=== PATIENT | male | born 1980 | race Caucasian/White ===

== ENCOUNTER 2019-01-22 08:28 | Emergency (ER) | payer SELFPAY ==
--- NOTE | 2019-01-22 09:42 | ER ---
Nurse's Notes [facility] Name: Bandar Padilla Age: 38 yrs Sex: Male : 1980 Arrival Date: 01/22/2019 Time: 08:31 Bed 19 Private MD: Diagnosis: Other bursitis of knee, left knee Presentation: 01/22 08:43 Presenting complaint: Patient states: left knee pain since yesterday morning, denies iw injury. Transition of care: patient was not received from another setting of care. Onset of symptoms was January 22, 2019. Risk Assessment: Do you want to hurt yourself or someone else? Patient reports no desire to harm self or others. Initial Sepsis Screen: Does the patient meet any 2 criteria? No. Patient's initial sepsis screen is negative. Does the patient have a suspected source of infection? No. Patient's initial sepsis screen is negative. Care prior to arrival: None. 08:43 Method Of Arrival: Ambulatory iw 08:43 Acuity: AYDIN 4 iw Triage Assessment: 08:45 General: Appears in no apparent distress. comfortable, Behavior is cooperative, bp appropriate for age, anxious. Pain: Complains of pain in left knee. EENT: No deficits noted. Neuro: No deficits noted. Cardiovascular: No deficits noted. Respiratory: No deficits noted. GI: No signs and/or symptoms were reported involving the gastrointestinal system. : No signs and/or symptoms were reported regarding the genitourinary system. Derm: No deficits noted. Musculoskeletal: Reports pain in left knee. Historical: - Allergies: 08:44 No Known Allergies; iw - Home Meds: 08:44 None [Active]; iw - PMHx: 08:44 None; iw - PSHx: 08:45 right knee; iw - Immunization history:: Adult Immunizations not up to date. - Social history:: Smoking status: Patient uses tobacco products, smokes one pack cigarettes per day. - Ebola Screening: : Patient negative for fever greater than or equal to 101.5 degrees Fahrenheit, and additional compatible Ebola Virus Disease symptoms Patient denies exposure to infectious person Patient denies travel to an Ebola-affected area in the 21 days before illness onset No symptoms or risks identified at this time. Screenin:45 Fall Risk None identified. bp 09:01 Abuse screen: Denies threats or abuse. Denies injuries from another. Nutritional bp screening: No deficits noted. Tuberculosis screening: No symptoms or risk factors identified. Assessment: 08:45 General: SEE TRIAGE NOTE. bp 10:00 Reassessment: PT D/C HOME AMBULATORY WITH FAMILY, DX WITH BURSITIS. bp Vital Signs: 08:45 BP 141 / 76; Pulse 73; Resp 16; Temp 97.7; Pulse Ox 98% on R/A; Weight 79.83 kg; Height iw 5 ft. 8 in. (172.72 cm); Pain 0/10; 09:45 BP 137 / 69; Pulse 75; Resp 16; Temp 98; Pulse Ox 98% ; bp 08:45 Body Mass Index 26.76 (79.83 kg, 172.72 cm) ED Course: 08:31 Patient arrived in ED. mr 08:31 Michelle Helton FNP-C is PHCP. kb 08:32 Casper Lee MD is Attending Physician. kb 08:44 Triage completed. iw 08:46 Arm band placed on. iw 08:59 Didier Muhammad, RN is Primary Nurse. bp 09:01 Patient has correct armband on for positive identification. Placed in gown. Bed in low bp position. Call light in reach. Side rails up X2. Adult w/ patient. 09:12 Knee Left 3 View XRAY In Process Unspecified. EDMS 09:45 Bang wrap to left knee. bp 10:00 No provider procedures requiring assistance completed. Patient did not have IV access bp during this emergency room visit. Administered Medications: 09:45 Drug: TORadol 30 mg Route: IM; Site: right deltoid; bp 10:00 Follow up: Response: Pain is decreased bp Outcome: 09:41 Discharge ordered by MD. kb 10:01 Discharged to home ambulatory, with family. bp 10:01 Condition: stable 10:01 Discharge instructions given to patient, Instructed on discharge instructions, follow up and referral plans. medication usage, Demonstrated understanding of instructions, follow-up care, medications, Prescriptions given X 1. 10:03 Patient left the ED. bp Signatures: Dispatcher [employer] EDMS Michelle Helton FNP-C FNP-Ckb LeroyYeni Junie Braga RN RN iw Didier Muhammad, RN RN bp Corrections: (The following items were deleted from the chart) 08:45 08:43 Presenting complaint: Patient states: left knee pain since yesterday morning, iw denies injury iw 08: Presenting complaint: Patient states: right knee pain since yesterday morning, iw denies injury iw 08:44 PSHx: left knee; iw iw
--- NOTE | 2019-01-22 09:42 | EDPHYS ---
Physician Documentation [facility] Name: Bandar Padilla Age: 38 yrs Sex: Male : 1980 Arrival Date: 01/22/2019 Time: 08:31 Bed 19 Private MD: ED Physician Casper eLe HPI: 01/22 08:50 This 38 yrs old Male presents to ER via Ambulatory with complaints of Knee kb Pain. 08:50 The patient presents with pain, that is acute. The complaints affect the left knee. kb Context: The problem was sustained at work, resulted from no cause, was sitting in truck when pain started, the patient can fully bear weight, the patient is not able to ambulate. Onset: The symptoms/episode began/occurred yesterday. Modifying factors: The symptoms are alleviated by nothing. the symptoms are aggravated by straightening leg. Associated signs and symptoms: Pertinent positives: swelling. Treatment prior to arrival includes: no previous treatment. Severity of symptoms: At their worst the symptoms were moderate, in the emergency department the symptoms are unchanged. The patient has experienced a previous episode. The patient has not recently seen a physician. Pt reports he was sitting in his truck and started having stabbing pain to front of left knee. States he had the same thing happen to the right knee in the past and had to have his bursa removed. . Historical: - Allergies: 08:44 No Known Allergies; iw - Home Meds: 08:44 None [Active]; iw - PMHx: 08:44 None; iw - PSHx: 08:45 right knee; iw - Immunization history:: Adult Immunizations not up to date. - Social history:: Smoking status: Patient uses tobacco products, smokes one pack cigarettes per day. - Ebola Screening: : Patient negative for fever greater than or equal to 101.5 degrees Fahrenheit, and additional compatible Ebola Virus Disease symptoms Patient denies exposure to infectious person Patient denies travel to an Ebola-affected area in the 21 days before illness onset No symptoms or risks identified at this time. ROS: 08:49 Constitutional: Negative for fever, chills, and weight loss, Cardiovascular: Negative kb for chest pain, palpitations, and edema, Respiratory: Negative for shortness of breath, cough, wheezing, and pleuritic chest pain, Abdomen/GI: Negative for abdominal pain, nausea, vomiting, diarrhea, and constipation, Back: Negative for injury and pain, Skin: Negative for injury, rash, and discoloration, Neuro: Negative for headache, weakness, numbness, tingling, and seizure. 08:49 MS/extremity: Positive for pain, of the left knee. Exam: 08:49 Constitutional: This is a well developed, well nourished patient who is awake, alert, kb and in no acute distress. Head/Face: Normocephalic, atraumatic. Chest/axilla: Normal chest wall appearance and motion. Nontender with no deformity. No lesions are appreciated. Cardiovascular: Regular rate and rhythm with a normal S1 and S2. No gallops, murmurs, or rubs. Normal PMI, no JVD. No pulse deficits. Respiratory: Lungs have equal breath sounds bilaterally, clear to auscultation and percussion. No rales, rhonchi or wheezes noted. No increased work of breathing, no retractions or nasal flaring. Abdomen/GI: Soft, non-tender, with normal bowel sounds. No distension or tympany. No guarding or rebound. No evidence of tenderness throughout. Back: No spinal tenderness. No costovertebral tenderness. Full range of motion. Neuro: Awake and alert, GCS 15, oriented to person, place, time, and situation. Cranial nerves II-XII grossly intact. Motor strength 5/5 in all extremities. Sensory grossly intact. Cerebellar exam normal. Normal gait. 08:49 Musculoskeletal/extremity: Extremities: grossly normal except: noted in the left knee: erythema, pain, swelling, erythema and swelling is slight and just distal to patella , ROM: intact in all extremities, more pain when straightening leg, Circulation is intact in all extremities. Sensation intact. Weight bearing: able to fully bear weight. Vital Signs: 08:45 BP 141 / 76; Pulse 73; Resp 16; Temp 97.7; Pulse Ox 98% on R/A; Weight 79.83 kg; Height iw 5 ft. 8 in. (172.72 cm); Pain 0/10; 09:45 BP 137 / 69; Pulse 75; Resp 16; Temp 98; Pulse Ox 98% ; bp 08:45 Body Mass Index 26.76 (79.83 kg, 172.72 cm) iw MDM: 08:37 Patient medically screened. kb 08:49 Data reviewed: vital signs, nurses notes. Data interpreted: Pulse oximetry: on room air kb is 98 %. Interpretation: normal. 09:40 Counseling: I had a detailed discussion with the patient and/or guardian regarding: the kb historical points, exam findings, and any diagnostic results supporting the discharge/admit diagnosis, radiology results, the need for outpatient follow up, a orthopedic surgeon, to return to the emergency department if symptoms worsen or persist or if there are any questions or concerns that arise at home. 01/22 08:41 Order name: Knee Left 3 View XRAY; Complete Time: 10:27 kb 01/22 09:41 Order name: Bang Wrap; Complete Time: 09:59 kb Administered Medications: 09:45 Drug: TORadol 30 mg Route: IM; Site: right deltoid; bp 10:00 Follow up: Response: Pain is decreased bp Disposition: :27 Co-signature as Attending Physician, Casper Lee MD. rn Disposition: 01/22/19 09:41 Discharged to Home. Impression: Other bursitis of knee, left knee. - Condition is Stable. - Discharge Instructions: Bursitis, [id number]. - Prescriptions for Diclofenac Sodium 75 mg Oral Tablet, Delayed Release (E.C.) - take 1 tablet by ORAL route 2 times per day As needed; 30 tablet. - Medication Reconciliation Form, Thank You Letter, Antibiotic Education, Prescription Opioid Use, Work release form form. - Follow up: Emergency Department; When: As needed; Reason: Worsening of condition. Follow up: Private Physician; When: 2 - 3 days; Reason: Recheck today's complaints, Continuance of care, Re-evaluation by your physician. Signatures: Dispatcher [employer] Michelle Alberto, PROP WORKER-C PROP WORKER-Ckb Junie Braga, RN RN iw Casper Lee MD MD rn Peltier, Brian, RN RN bp Corrections: (The following items were deleted from the chart) 08:45 08:44 PSHx: left knee; [facility] 10:03 09:41 01/22/2019 09:41 Discharged to Home. Impression: Other bursitis of knee, left bp knee. Condition is Stable. Forms are Medication Reconciliation Form, Thank You Letter, Antibiotic Education, Prescription Opioid Use. Follow up: Emergency Department; When: As needed; Reason: Worsening of condition. Follow up: Private Physician; When: 2 - 3 days; Reason: Recheck today's complaints, Continuance of care, Re-evaluation by your physician. kb
--- NOTE | 2019-01-22 09:46 | RAD REPORT ---
EXAM DESCRIPTION: RAD - Knee Left 3 View - 01/22/2019 9:03 am CLINICAL HISTORY: Nontraumatic left knee pain COMPARISON: None. FINDINGS: No fracture, dislocation or periosteal reaction.No joint effusion seen. No joint space yared rowing. No soft tissue abnormality. IMPRESSION: Negative left knee. Clinical concerns for internal derangement or occult bony injury could be further assessed with MR im aging.
[2019-01-22] MEDS ORDERED: KETOROLAC 30 MG/ML INJ ONE (09:50)
[2019-01-22 12:13] VITALS: O2SAT 98
[2019-01-22 12:14] VITALS: BP 137/69; TEMP 98
== END 2019-01-22 10:03 | disposition home or self-care (01) ==
LOC: ER 08:28
DX: M70.52 Other bursitis of knee, left knee (principal); Y93.9 Activity, unspecified; F17.210 Nicotine dependence, cigarettes, uncomplicated
CPT/HCPCS: 96372; 99284